=== PATIENT | male | born 1965 | race Caucasian/White ===

== ENCOUNTER 2024-12-07 06:08 | Emergency (ER) | payer MEDICARE, MEDICAID ==
[2024-12-07 07:17] LABS: #Basophils 0.06 10x3/uL (0.0-0.2); #Eosinophils Less than 0.03 10x3/uL (0.0-0.7); %Basophils 0.4 % (0.0-1.0); %Eosinophils 0.1 % (0.0-10.0); %Monocytes 8.4 % (0.0-10.0); %Neutrophils 75.7 % (42.0-75.0); Hematocrit 43.1 % (42.0-52.0); Hemoglobin 14.6 g/dL (14.0-18.0); Mean Corpuscular HGB CONC 33.9 g/dL (32.0-36.0); Mean Corpuscular Hemoglobin 30.1 pg (27.0-31.0); Mean Corpuscular Volume 88.9 fL (78.0-98.0); Mean Platelet Volume 8.8 fL (7.4-10.4); Platelet Count 354 10x3/uL (130-400); RBC Distribution Width 13.5 % (11.5-14.5); Red Blood Cell (RBC) Count 4.85 mill/uL (4.70-6.10)
[2024-12-07] MEDS ORDERED: Dexamethasone 10 MG/ML VIAL ONE (07:22)
[2024-12-07 07:41] LABS: CRP,High Sensitivity (Inhouse) 7.26 mg/dL (< or = 0.5)
[2024-12-07 07:42] LABS: ALT (SGPT) 16 U/L (Less than 45); AST (SGOT) 30 U/L (11-34); Albumin 4.5 g/dL (3.1-4.5); Alkaline Phosphatase 75 U/L (40-110); Anion Gap 16 mmol/L (10-20); BUN (Urea Nitrogen) 6 mg/dL (8.4-25.7); Bilirubin, Total 0.9 mg/dL (0.3-1.2); Calc. Creatinine Clearance 0 mL/min (70-130); Calcium 10.1 mg/dL (7.8-10.44); Carbon Dioxide 24 mmol/L (22-29); Chloride 102 mmol/L (98-107); Estimated GFR 98; Globulin 4.2 g/dL (2.4-3.5); Glucose 125 mg/dL (70-105); Potassium 3.8 mmol/L (3.5-5.1); Protein, Total 8.7 g/dL (6.0-8.3); Sodium 138 mmol/L (136-145)
[2024-12-07] MEDS ORDERED: Ketorolac Tromethamine 30 MG (1 mL) VIAL ONE (08:53)
[2024-12-07] MEDS ORDERED: Clindamycin/D5W 900 MG in Premix 1 BAG IVPB SCH (09:30)
[2024-12-07 10:34] LABS: Lactic Acid 1.29 mmol/L (0.50-2.20)
== END 2024-12-07 10:28 | disposition home or self-care (01) ==
LOC: ERS 06:08
DX: K04.7 Periapical abscess without sinus (principal)
CPT/HCPCS: 70487; 80053; 83605; 85025; 86141; 87040; J1100; J1885; J3490; 36415; 96361; 96365; 96375